=== PATIENT | female | born 1965 ===

== ENCOUNTER → 2025-01-29 | Outpatient (CLI) | payer OTHER | END | disposition home or self-care (01) | LOC: LAB 11:00 → LAB SHORT 11:00 | PROVIDERS: Physician Assistant | DX: Z12.4 Encounter for screening for malignant neoplasm of cervix (principal); R87.612 Low grade squamous intraepithelial lesion on cytologic smear of cervix (LGSIL) | CPT/HCPCS: 87624; G0145 ==